=== PATIENT | female | born 1995 | race Caucasian/White ===

== ENCOUNTER 2022-02-09 08:50 | Emergency (ER) | payer OTHER ==
[~2022-02-09 08:50] MED LIST: NAPROXEN500 MG PO
[2022-02-09] MEDS ORDERED: NAPROXEN500 MG PO (11:33)
[2022-02-09] MEDS ORDERED: NORCO 5-325 TA1 EACH PO (11:33)
== END 2022-02-09 12:18 | disposition home or self-care (01) ==
LOC: FER 08:50
DX: S93.402A Sprain of unspecified ligament of left ankle, initial encounter (principal); F17.210 Nicotine dependence, cigarettes, uncomplicated; Z91.040 Latex allergy status; W10.9XXA Fall (on) (from) unspecified stairs and steps, initial encounter; Y92.009 Unspecified place in unspecified non-institutional (private) residence as the place of occurrence of the external cause
CPT/HCPCS: 73610